=== PATIENT | female | born 1950 | race Caucasian/White ===

== ENCOUNTER 2019-01-02 18:41 | Emergency (ER) | payer MEDICARE, OTHER ==
[~2019-01-02] VITALS: Ht 165 cm; Wt 144.8 kg
--- NOTE | 2019-01-02 19:05 | ED Dyspnea ---
General Chief Complaint: Respiratory Problems Stated Complaint: SOB Source of Information: Patient Exam Limitations: No Limitations History of Present Illness Date Seen by Provider: Jan 02, 2019 Time Seen by Provider: 18:50 Initial Comments The patient is a pleasant 68-year-old obese female who presents for evaluation of cough and shortness of breath which is been bothering her for approximately one month. She states that she has been to multiple urgent cares and to an emergency department for her symptoms. She is taken both azithromycin and Levaquin as well as other nonantibiotic medications. She states that night she feels like she has a lot of sinus congestion in her throat. She mentions that she wears a CPAP at night and is concerned about aspirating. She also believes that she has a pneumonia. She is alert and oriented 4, somewhat anxious, but appears to be in no distress. She denies fevers or chills, chest pain, hemoptysis, productive cough, abdominal or back pain, palpitations, dizziness or syncope. She denies pain with inspiration. Timing/Duration: Other (approx 1 month) Severity: Moderate Prior Episodes/Possible Cause: No Prior Episodes Modifying Factors: Improves With Activity (makes dyspnea worse) Associated Symptoms: Cough Allergies and Home Medications Allergies Coded Allergies: Sulfa (Sulfonamide Antibiotics) (Verified Allergy, Unknown, 01/02/19) metformin (Verified Allergy, Unknown, 01/02/19) sulfamethoxazole (Verified Allergy, Unknown, 01/02/19) trimethoprim (Verified Allergy, Unknown, 01/02/19) Patient Home Medication List Home Medication List Reviewed: Yes Review of Systems Review of Systems Constitutional: no symptoms reported EENTM: no symptoms reported Respiratory: cough, short of breath Cardiovascular: no symptoms reported Gastrointestinal: no symptoms reported Genitourinary: no symptoms reported Musculoskeletal: no symptoms reported Skin: no symptoms reported Psychiatric/Neurological: No Symptoms Reported Endocrine: No Symptoms Reported Hematologic/Lymphatic: No Symptoms Reported All Other Systems Reviewed Negative Unless Noted: Yes Past Bvoafrx-Antwmw-Lelwbx Hx Past Med/Social Hx: Reviewed Nursing Past Med/Soc Hx Physical Exam Vital Signs Vital Signs - First Documented 01/02/19 19:01 Temp 36.7 Pulse 85 Resp 18 B/P (MAP) 205/88 (127) Pulse Ox 93 O2 Delivery Room Air Capillary Refill : Height, Weight, BMI Height: '" Weight: lbs. oz. kg; BMI Method: General Appearance: No Apparent Distress, WD/WN HEENT: PERRL/EOMI, Pharynx Normal Neck: Full Range of Motion, Non Tender, Supple Respiratory: Chest Non Tender, Lungs Clear, Normal Breath Sounds, No Accessory Muscle Use, No Respiratory Distress Cardiovascular: Regular Rate, Rhythm, No Edema, Systolic Murmur (05/13) Gastrointestinal: Normal Bowel Sounds, Non Tender, Soft Extremity: Normal Capillary Refill, Normal Inspection, Normal Range of Motion, No Calf Tenderness Neurologic/Psychiatric: Alert, Oriented x3, No Motor/Sensory Deficits, Normal Mood/Affect Skin: Normal Color, Warm/Dry Focused Exam Lactate Level 01/02/19 19:15: Lactic Acid Level 1.42 Lactic Acid Level Laboratory Tests Test 01/02/19 19:15 Lactic Acid Level 1.42 MMOL/L (0.50-2.00) Progress/Results/Core Measures Results/Orders Lab Results Laboratory Tests Test 01/02/19 19:05 01/02/19 19:15 Range/Units White Blood Count 6.0 4.3-11.0 10^3/uL Red Blood Count 3.90 L 4.35-5.85 10^6/uL Hemoglobin 10.9 L 11.5-16.0 G/DL Hematocrit 34 L 35-52 % Mean Corpuscular Volume 87 80-99 FL Mean Corpuscular Hemoglobin 28 25-34 PG Mean Corpuscular Hemoglobin Concent 32 32-36 G/DL Red Cell Distribution Width 14.5 10.0-14.5 % Platelet Count 146 130-400 10^3/uL Mean Platelet Volume 13.3 H 7.4-10.4 FL Neutrophils (%) (Auto) 68 42-75 % Lymphocytes (%) (Auto) 18 12-44 % Monocytes (%) (Auto) 9 0-12 % Eosinophils (%) (Auto) 4 0-10 % Basophils (%) (Auto) 1 0-10 % Neutrophils # (Auto) 4.1 1.8-7.8 X 10^3 Lymphocytes # (Auto) 1.1 1.0-4.0 X 10^3 Monocytes # (Auto) 0.5 0.0-1.0 X 10^3 Eosinophils # (Auto) 0.2 0.0-0.3 10^3/uL Basophils # (Auto) 0.1 0.0-0.1 10^3/uL Sodium Level 138 135-145 MMOL/L Potassium Level 4.5 3.6-5.0 MMOL/L Chloride Level 103 98-107 MMOL/L Carbon Dioxide Level 23 21-32 MMOL/L Anion Gap 12 5-14 MMOL/L Blood Urea Nitrogen 29 H 7-18 MG/DL Creatinine 0.98 0.60-1.30 MG/DL Estimat Glomerular Filtration Rate 56 BUN/Creatinine Ratio 30 Glucose Level 140 H 70-105 MG/DL Calcium Level 9.8 8.5-10.1 MG/DL Corrected Calcium 9.8 8.5-10.1 MG/DL Total Bilirubin 0.8 0.1-1.0 MG/DL Aspartate Amino Transf (AST/SGOT) 24 5-34 U/L Alanine Aminotransferase (ALT/SGPT) 23 0-55 U/L Alkaline Phosphatase 63 40-136 U/L Troponin I < 0.30 <0.30 NG/ML Pro-B-Type Natriuretic Peptide 2321.0 H <75.0 PG/ML Total Protein 8.1 6.4-8.2 GM/DL Albumin 4.0 3.2-4.5 GM/DL Lactic Acid Level 1.42 0.50-2.00 MMOL/L My Orders Orders - ANGEL MEDEIROS DO Cbc With Automated Diff (01/02/19 18:57) Comprehensive Metabolic Panel (01/02/19 18:57) Lactic Acid Analyzer (01/02/19 18:57) Blood Culture (01/02/19 18:57) Troponin I Fs (01/02/19 18:57) Probnp Fs (01/02/19 18:57) Chest Pa/Lat (2 View) (01/02/19 18:57) Continuous Ekg Monitoring (01/02/19 18:57) Ekg Tracing (01/02/19 18:57) Furosemide Injection (Lasix Injection) (01/02/19 20:30) Aspirin Tablet (Aspirin Tablet) (01/02/19 20:30) Vital Signs/I&O 01/02/19 19:01 Temp 36.7 Pulse 85 Resp 18 B/P (MAP) 205/88 (127) Pulse Ox 93 O2 Delivery Room Air Progress Progress Note : Progress Note @2024 - patient and family updated on lab and imaging results suggesting CHF. I expressed my concerns given that the patient has a systolic heart murmur and pulmonary edema on her chest x-ray and elevated BNP all suggesting CHF. The patient expresses verbal understanding. I strongly advised the patient be admitted and have cardiology evaluate her and likely get an echocardiogram. The patient states that she has a dye house helper at [facility] and wants to follow-up with him. Advised the patient to return to the emergency Department immediately for new or worsening symptoms. She is stable for discharge at this time. Comment EKG@1858 - Normal sinus rhythm, rate of 82, normal axis, no acute ischemic findings noted, no STEMI, reviewed and interpreted by myself Diagnostic Imaging Diagonstic Imaging: Xray Comments [facility]. POS [place], [place] POS NAME: KAREEM GROSS [facility] REC#: [id number] PT STATUS: REG ER : 1950 PHYSICIAN: ANGEL MEDEIROS DO ADMIT DATE: 01/02/19/ER FS Draft POSDate of Exam:01/02/19 CHEST PA/LAT (2 VIEW) Patient History: Cough. Shortness of breath for one month.. Technique: Two views of the chest Comparison: None FINDINGS: The lung volumes are normal. No focal consolidation is seen. No large pleural effusion or pneumothorax is seen. The cardiac silhouette is enlarged with prominent central pulmonary vascularity. No acute osseous abnormality is seen. IMPRESSION: 1. Cardiomegaly with central pulmonary vascular congestion. No overt pulmonary edema. Dictated on workstation # [id number] Dict: 01/02/191918 Trans: 01/02/191922 [facility] [id number] Interpreted by: CARLY CLEMENTS DO Electronically signed by: Departure Impression Primary Impression: Acute CHF (congestive heart failure) Additional Impression: Dyspnea Disposition: 01 HOME, SELF-CARE Condition: Stable Departure-Patient Inst. Decision time for Depature: 20:29 Referrals: BULMARO MARTIN MD (PCP/Family) Primary Care Physician Patient Instructions: Heart Failure, Adult Add. Discharge Instructions: Take the prescribed medicine as directed. Follow-up with your dye house helper in the next 24 hours. Return to the Emergency Department immediately for new or worsening symptoms. Scripts Furosemide (Lasix) 40 Mg Tablet 40 MG PO DAILY for 5 Days, #5 TAB Prov: ANGEL MEDEIROS DO 01/02/19 ANGEL MEDEIROS DO Jan 02, 2019 19:05 POS
[2019-01-02 19:14] LABS: BASOPHILS # (AUTO) 0.1 10^3/uL (0.0-0.1); BASOPHILS % (AUTO) 1 % (0-10); EOSINOPHILS # (AUTO) 0.2 10^3/uL (0.0-0.3); EOSINOPHILS % (AUTO) 4 % (0-10); HEMATOCRIT 34 % (35-52); HEMOGLOBIN 10.9 G/DL (11.5-16.0); LYMPHOCYTES # (AUTO) 1.1 X 10^3 (1.0-4.0); LYMPHOCYTES % (AUTO) 18 % (12-44); MEAN CORPUSCULAR HEMOGLOBIN 28 PG (25-34); MEAN CORPUSCULAR HGB CONC 32 G/DL (32-36); MEAN CORPUSCULAR VOLUME 87 FL (80-99); MEAN PLATELET VOLUME 13.3 FL (7.4-10.4); MONOCYTES # (AUTO) 0.5 X 10^3 (0.0-1.0); MONOCYTES % (AUTO) 9 % (0-12); NEUTROPHILS # (AUTO) 4.1 X 10^3 (1.8-7.8); NEUTROPHILS % (AUTO) 68 % (42-75); PLATELET COUNT 146 10^3/uL (130-400); RED CELL DISTRIBUTION WIDTH 14.5 % (10.0-14.5)
--- NOTE | 2019-01-02 19:24 | Diagnostic Imaging Report ---
Patient History: Cough. Shortness of breath for one month.. Technique: Two views of the chest Comparison: None FINDINGS: The lung volumes are normal. No focal consolidation is seen. No large pleural effusion or pneumothorax is seen. The cardiac silhouette is enlarged with prominent central pulmonary vascularity. No acute osseous abnormality is seen. IMPRESSION: 1. Cardiomegaly with central pulmonary vascular congestion. No overt pulmonary edema. Dictated by: Dictated on workstation # [id number]
[2019-01-02 19:52] LABS: CARBON DIOXIDE 23 MMOL/L (21-32); CHLORIDE 103 MMOL/L (98-107); POTASSIUM 4.5 MMOL/L (3.6-5.0); SODIUM 138 MMOL/L (135-145)
[2019-01-02 19:53] LABS: ALANINE AMINOTRANSFERASE 23 U/L (0-55); ALKALINE PHOSPHATASE 63 U/L (40-136); BILIRUBIN,TOTAL 0.8 MG/DL (0.1-1.0); BUN/CREATININE RATIO 30; CALCIUM 9.8 MG/DL (8.5-10.1); CREATININE SERUM 0.98 MG/DL (0.60-1.30); GFR ESTIMATED 56; GLUCOSE 140 MG/DL (70-105); TOTAL PROTEIN 8.1 GM/DL (6.4-8.2)
[2019-01-02] MEDS ORDERED: ASPIRIN 325 MG (5 GR) TABLET PO ONE (20:30)
[2019-01-02] MEDS ORDERED: FUROSEMIDE 40 MG/4 ML INJ (LASIX) IVP ONE (20:30)
[2019-01-02] MEDS ORDERED: FURO-124 PO (20:31)
[2019-01-02 20:39] VITALS: BP 182/92
== END 2019-01-02 20:39 | disposition home or self-care (01) ==
LOC: ER FS 18:42
DX: I50.9 Heart failure, unspecified (principal); Z99.89 Dependence on other enabling machines and devices; Z88.2 Allergy status to sulfonamides; Z88.1 Allergy status to other antibiotic agents; Z88.8 Allergy status to other drugs, medicaments and biological substances
CPT/HCPCS: 36415; 71046; 80053; 83605; 83880; 84484; 85025; 87040; 93005; 96374

== ENCOUNTER → 2019-07-06 | Outpatient (CLI) | payer MEDICARE ==
[~2019-07-06] MED LIST: FURO-124 PO
[2019-07-06 09:19] LABS: CREATININE SERUM 1.34 MG/DL (0.60-1.30); POTASSIUM 4.4 MMOL/L (3.6-5.0)
[2019-07-06 09:20] LABS: ALBUMIN 3.5 GM/DL (3.2-4.5); BILIRUBIN,TOTAL 0.3 MG/DL (0.1-1.0); CALCIUM 9.5 MG/DL (8.5-10.1); MAGNESIUM 2.1 MG/DL (1.6-2.4); TOTAL PROTEIN 7.5 GM/DL (6.4-8.2)
== END ==
LOC: LAB FS 07:58
DX: I10 Essential (primary) hypertension (principal)
CPT/HCPCS: 36415; 80053; 82306; 83735; 84443